=== PATIENT | male | born 1970 ===

== ENCOUNTER 2017-11-13 23:25 | Emergency (ER) | payer OTHER ==
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
[2017-11-14] MEDS ORDERED: Iodixanol 320 MG/ML 100 ML BOTTLE IV ONE (00:46)
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
[2017-11-14 03:58] VITALS: BP 123/74; PULSE 70; RESP 18; TEMP 98.4; O2SAT 97
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
== END 2017-11-14 04:03 | disposition home or self-care (01) ==
LOC: H.ER 23:25
DX: S63.501A Unspecified sprain of right wrist, initial encounter (principal); V43.52XA Car driver injured in collision with other type car in traffic accident, initial encounter; Y92.410 Unspecified street and highway as the place of occurrence of the external cause; E78.00 Pure hypercholesterolemia, unspecified
CPT/HCPCS: 71260; 72125; 73110; 74177; 99283; Q9967